=== PATIENT | female | born 1945 | race Caucasian/White ===

== ENCOUNTER 2016-10-09 15:56 | Inpatient (IN) ==
[2016-10-09 16:30] LABS: MANUAL DIFF NEEDED? NO
[2016-10-09] MEDS ORDERED: SODIUM CHLORIDE 0.9% INJ ONE (16:30)
[2016-10-09] MEDS ORDERED: PROTONIX IV ONE (16:30)
[2016-10-09] MEDS ORDERED: G.I. COCKTAIL PO ONE (16:30)
[2016-10-09 16:36] LABS: BASO% 0.2 % (0.0-0.8); EOS# 0.09 X1000 (0.0-0.7); HEMATOCRIT 44.3 % (37.0-47.0); HEMOGLOBIN 14.9 g/dL (12.0-16.0); LYMPH# 1.81 X1000 (1.2-3.4); MCHC 33.6 g/dL (33-37); MCV 86.4 FL (81-99); MONO% 9.3 % (1.7-9.3); MPV 10.7 FL (7.4-10.4); NEUT% 68.5 % (42.2-75.2); PLT 292 X1000 (130-400); RBC 5.13 XMIL (4.2-5.4)
[2016-10-09 16:46] LABS: INR 0.97; PROTIME 10.2 Seconds (9.2-11.7)
[2016-10-09 17:06] LABS: AGAP 15; ALBUMIN 4.4 g/dL (3.5-5.0); ALKALINE PHOSPHATASE 119 U/L (32-104); BUN 12 mg/dL (8-22); CALCIUM 9.7 mg/dL (8.8-10.2); CHLORIDE 100 mmol/L (98-107); CK PROFILE 69 U/L (24-173); COSMO 282; GOT 23 U/L (10-30); GPT 27 U/L (10-36); MAGNESIUM 2.1 mg/dL (1.5-2.7); POTASSIUM 4.3 mmol/L (3.5-5.1); SODIUM 141 mmol/L (136-145); TCO2 26 mmol/L (25-35); TOTAL BILIRUBIN 0.31 mg/dL (0.20-1.00); TOTAL PROTEIN 7.6 g/dL (6.3-8.3)
[2016-10-09] MEDS ORDERED: PROTONIX PO ONE (17:33)
--- NOTE | 2016-10-09 17:55 | Diag Imaging Result Doc PS360 ---
EXAM: ANGIOGRAM/PULMONARY ARTERIES HISTORY: central CP, elev D Dimer TECHNIQUE: CT of the chest with intravenous contrast with dose reduction (clarity.) COMMENT: There is a peripheral embolus in the posterior right lower lobe. There is no evidence of thoracic aortic aneurysm or dissection. There are granulomatous calcifications in the right lower lobe right hilum and aorticopulmonary window. No abnormal fluid collections are present. There is some patchy air trapping. There is atelectasis or fibrosis in the lingula. There are spondylotic changes in the thoracic spine. There is some thickening of the wall of the gallbladder with pericholecystic fluid. IMPRESSION: Minimal pulmonary embolus in the right lower lobe. Possibility of cholecystitis cannot be excluded. Electronically signed by Tesfaye Thompson 10/09/2016 5:53 PM
[2016-10-09] MEDS ORDERED: HEPARIN IV ONE (17:59)
--- NOTE | 2016-10-09 18:07 | PROVIDER DOCUMENTATION ---
This chart was entered by Christal Santos Scribe, acting as scribe for Ede Pacheco MD. HPI-Chest Pain - General Chief Complaint: Chest Pain Stated Complaint: ABN EKG Time Seen by Provider: 10/09/16 16:16 Source: patient Allergies/Adverse Reactions: Patient Allergies Allergy/AdvReac Type Severity Reaction Status Date / Time acetaminophen [From [facility]] Allergy tingling Verified 06/20/14 10:52 in hands and nausea hydrocodone bitartrate * Allergy tingling Verified 06/20/14 10:52 [From [facility]] in hands and nausea - History of Present Illness-CP Nature of Presenting Problem: Pt is 71 y/o F presents to the ED with chest pain. Pt states CP radiates to epigastric. Pt states pain started last night and she thought it was indigestion. Pt states took some tums for her indigestion. Pt states chest pain was present for 3 hours. Pt states pain changed to discomfort around 0600 this am. Pt states N and denies V. Pt denies F. Pt denies REID. Pt states tingling in fingers on shivam hands. Location: reports: other (L side) Chest Pain Radiation: reports: epigastric Quality of Pain: reports: pressure, tightness Severity in ED: moderate Onset/Duration: last night Timing: improving, intermittent Context/Activities at Onset: reports: light activity Modifying Factors: improves with: nothing Associated Symptoms: reports: abdominal pain, nausea. denies: back pain, dizziness, edema, fatigue, fever/chills, headache, heartburn, rash, shortness of breath, swelling/lump in chest, syncope, vomiting, weakness Nitro Today/Relief: no nitro taken today Aspirin Treatment Today: no aspirin today Prior Chest Pain/Cardiac Workup: reports: no prior chest pain, no prior cardiac workup Similar Symptoms Previously?: Yes Recently Seen Here or By Another Healthcare Provider: Yes (PCP at 1400 today ) Review of Systems - Adult - REVIEW OF SYSTEMS - ADULT Constitutional: denies: chills, fever Eyes: denies: blurred vision, double vision Ears, Nose, Mouth & Throat: denies: ear pain, nose pain, throat pain Cardiovascular: reports: chest pain. denies: heart murmur, irregular heart rate Respiratory: denies: cough, shortness of breath, wheezing Gastrointestinal: reports: abdominal pain, nausea. denies: diarrhea, vomiting Genitourinary: denies: dysuria, hematuria Musculoskeletal: denies: bone pain, joint pain, muscle aches, neck pain Integumentary: denies: hives, itching, rash Neurological: reports: other (tingling in fingers). denies: dizziness/vertigo, headache/migraines, numbness, syncope Psychiatric: reports: no symptoms reported Endocrine: reports: no symptoms reported Hematologic/Lymphatic: reports: no symptoms reported Allergic/Immunologic: reports: no symptoms reported All Other Systems: Reviewed and Negative Past History - Adult - PAST MEDICAL HISTORY-ADULT Review of Records: reports: Old Records Reviewed, Nursing Assessment Review, Medications Reviewed, Social history reviewed & non-contributory. Major Childhood Illnesses: reports: denies history Cardiovascular: reports: denies history Respiratory: reports: denies history Gastrointestinal: reports: denies history Obstetrical/Gynecological: reports: denies history Genitourinary: reports: denies history Musculoskeletal: reports: denies history Neurological: reports: denies history Endocrine/Immune: reports: denies history Other Conditions: reports: denies history - PRIOR SURGERIES/PROCEDURES Surgical/Procedure History: reports: reviewed, not pertinent - IMMUNIZATION STATUS Childhood Immunizations: See Nurse Assessment Flu Vaccine: See Nurse Assessment - FAMILY HISTORY Family History: reviewed, not pertinent - SOCIAL HISTORY Smoking: denies Substance Use: denies Living Situation: family Physical Exam-General - PHYSICAL EXAM-ADULT Initial Vital Signs Reviewed: Yes - CONSTITUTIONAL General Appearance: appears well, alert, no apparent distress - EYES Eyes: PERRL/EOMI, pink conjunctivae - HEAD, EARS, NOSE, MOUTH & THROAT HENMT: normal ENT inspection - NECK Neck: normal inspection - RESPIRATORY Respiratory: chest non-tender, lungs clear, normal breath sounds - CARDIOVASCULAR Cardiovascular: normal peripheral pulses, regular rate, rhythm - GASTROINTESTINAL (ABDOMEN) Abdominal Exam: normal bowel sounds, soft, tenderness (RUQ; epigastric; suprapubic) - MUSCULOSKELETAL Back Exam: normal inspection Extremity: normal range of motion, normal inspection - SKIN Integumentary: normal color, normal turgor, warm/dry - NEUROLOGIC Neurologic: grossly normal - PSYCHIATRIC Psych/Mental Status: normal mood/affect, oriented x 3 Progress - PLAN OF CARE/RESULTS Progress/Plan/Lab Results: Vital Signs - 8 hr 10/09/16 16:09 10/09/16 16:40 Temperature 98.0 F Pulse Rate 77 68 Respiratory Rate 20 16 Blood Pressure 133/60 142/65 O2 Sat by Pulse Oximetry 97 99 Laboratory Results - last 24 hr 10/09/16 10/09/16 10/09/16 16:17 16:17 16:17 WBC 8.60 RBC 5.13 Hgb 14.9 Hct 44.3 MCV 86.4 MCH 29.0 MCHC 33.6 RDW Std Deviation 13.2 Plt Count 292 MPV 10.7 H Immature Gran % (Auto) 0.0 Neut % (Auto) 68.5 Lymph % (Auto) 21.0 Mcpherson % (Auto) 9.3 Eos % (Auto) 1.0 Baso % (Auto) 0.2 Immature Gran # (Auto) 0.00 Neut # (Auto) 5.88 Lymph # (Auto) 1.81 Mcpherson # (Auto) 0.80 H Eos # (Auto) 0.09 Baso # (Auto) 0.02 PT INR PTT (Actin FS) D-Dimer 0.61 H Sodium 141 Potassium 4.3 Chloride 100 Carbon Dioxide 26 Anion Gap 15 BUN 12 Creatinine 0.6 Estimated GFR/1.73 m2 > 60 BUN/Creatinine Ratio 20 Glucose 110 H Calculated Osmolality 282 Calcium 9.7 Magnesium 2.1 Total Bilirubin 0.31 AST 23 ALT 27 Alkaline Phosphatase 119 H Creatine Kinase 69 Troponin T Thv-J-[id number] Pept Total Protein 7.6 Albumin 4.4 Globulin 3.2 Albumin/Globulin Ratio 1.4 10/09/16 10/09/16 10/09/16 16:17 16:17 16:17 WBC RBC Hgb Hct MCV MCH MCHC RDW Std Deviation Plt Count MPV Immature Gran % (Auto) Neut % (Auto) Lymph % (Auto) Mcpherson % (Auto) Eos % (Auto) Baso % (Auto) Immature Gran # (Auto) Neut # (Auto) Lymph # (Auto) Mcpherson # (Auto) Eos # (Auto) Baso # (Auto) PT 10.2 INR 0.97 PTT (Actin FS) 25.0 D-Dimer Sodium Potassium Chloride Carbon Dioxide Anion Gap BUN Creatinine Estimated GFR/1.73 m2 BUN/Creatinine Ratio Glucose Calculated Osmolality Calcium Magnesium Total Bilirubin AST ALT Alkaline Phosphatase Creatine Kinase Troponin T < 0.010 Odm-T-Bbgoxfcxtnu Pept 171 Total Protein Albumin Globulin Albumin/Globulin Ratio Orders Category Date Time Status ANGIOGRAM/PULMONARY ARTERIES [CT] Stat Exams 10/09/16 17:26 Completed CBC WITH ELECTRONIC DIFF [HEME] Stat Lab 10/09/16 16:17 Completed CK PROFILE [SP CHEM] Stat Lab 10/09/16 16:17 Completed COMPREHENSIVE METABOLIC PANEL [CHEM] Stat Lab 10/09/16 16:17 Completed D-DIMER [CHEM] Stat Lab 10/09/16 16:17 Completed MAGNESIUM [CHEM] Stat Lab 10/09/16 16:17 Completed PRO B-NATRIURETIC PEPTIDE Stat Lab 10/09/16 16:17 Completed PROTIME WITH INR [COAG] Stat Lab 10/09/16 16:17 Completed PTT [COAG] Stat Lab 10/09/16 16:17 Completed TROPONIN T Stat Lab 10/09/16 16:17 Completed Heparin Med 10/09/16 17:59 Once 1,440 unit IV NOW ONE Lido/Quinn Alk/Al&mg Hydrox [G.i. Cocktail] Med 10/09/16 16:30 Discontinued 30 ml PO NOW ONE Pantoprazole [Protonix] Med 10/09/16 16:30 Discontinued 40 mg IV NOW ONE Pantoprazole [Protonix] Med 10/09/16 17:33 Discontinued 40 mg PO NOW ONE Sodium Chloride 0.9% Med 10/09/16 16:30 Discontinued 10 ml INJ NOW ONE EKG [EKG] Stat Ther 10/09/16 16:13 Ordered Result Diagrams: 10/09/16 16:17 10/09/16 16:17 - CT/MRI 1 CT Study: Angiogram Impression: Abnormal (possiblity of cholecystitis cannot be excluded) CT Results: minimal pulmonary embolus in the right lower lobe. - CONSULTS/PCP/HOSPITALIST Notification #1 *Consult/PCP/Hospitalist*: [place] Time Discussed: 18:03 Consult Disposition: Will see in ED, Admit Departure - Departure Date of Disposition Decision: 10/09/16 Time of Disposition Decision: 18:00 DIAGNOSIS: Pulmonary embolus, right Disposition: ADMITTED INPATIENT 09 Certified Medical Emergency: Emergent Condition: Good Referrals and Follow-Ups: Donny Morris [Primary Care Provider] - - Critical Care Note This patient required my direct & personal management of CC.: No This chart was documented by the indicated scribe, (Christal Santos Scribe) and accurately reflects the services I performed and decisions made by me, Ede Pacheco MD, as attested by the provider's signature.
[2016-10-09] MEDS ORDERED: LOVENOX SUBQ SCH (18:45)
[2016-10-09] MEDS: LOVENOX SUBQ SCH (19:21)
--- NOTE | 2016-10-09 19:33 | HISTORY AND PHYSICAL ---
PRIMARY CARE PHYSICIAN: Donny Mroris MD. PRESENTING COMPLAINT: Epigastric discomfort and abdominal puffiness. HISTORY OF PRESENTING COMPLAINT: Ms. Barrett is a 71-year-old, female, previously healthy until about 2 days ago when she started having this epigastric discomfort associated with abdominal bloatedness and belching. There was a one time episode of being nauseated but no vomiting. The patient also referred that she had some pressure in the epigastrium radiating to the back. The left finger got somehow numb but that is not new. Patient went to her PCP. They did an EKG and, according to her, saw something abnormal so they recommended that she come to the emergency department. Patient came and was evaluated. Initial workup showed that her D-dimer was slightly elevated so a CTA was done which revealed a minimal pulmonary embolus in the right lower lobe but the possibility of cholecystitis could not be excluded. We were therefore consulted for admission for medical care. PAST MEDICAL HISTORY: Unremarkable. PAST SURGICAL HISTORY: Previous hysterectomy. Repair of cystostomy. Removal of bladder tumor for which pathology was benign. SOCIAL HISTORY: Patient is and lives with her . Her kids are grown. Denies any alcohol or tobacco use. Patient is retired. She is, however, very active at home. Moving up and down. HEALTH MAINTENANCE: Patient also refers that she normally does at her mammogram routinely and there has not been any abnormality. She also does a Pap smear routinely but there has not been any abnormality. She also had a colonoscopy about 10 years ago but there was no abnormality. ALLERGIES: Acetaminophen and hydrocodone. REVIEW OF SYSTEMS: A 14 point review of systems was conducted with the patient and unremarkable except for what we have in the HPI. Specifically, patient denies losing weight or night sweats. She denies any chest pain or shortness of breath. She is not coughing. She is not having any sputum production. Patient denies any diarrhea or [place] bleed. PHYSICAL EXAMINATION: VITAL SIGNS: Blood pressure 142/65, pulse 68, respirations 16, temperature is 98.0 degrees. Patient is saturating 99% on room air. GENERAL EXAMINATION: Ms. Chung is a 71-year-old, female. She is in bed. She is not in any distress. HEENT: Mucosa is pink and moist. Anicteric. Acyanotic. Head is normocephalic and atraumatic. NECK: Supple. There is no JVD and no carotid bruit. CHEST: Good air entry bilateral. There is no accessory muscle use. Normal percussion noted bilateral. I did not appreciate any crepitations or any rhonchi. CARDIOVASCULAR: Regular rate and rhythm. No murmurs, no rubs, no gallops. ABDOMEN: Soft. There is mild tenderness in the epigastrium. Bowel sounds are present. There is no hepatosplenomegaly and no organomegaly felt. EXTREMITIES: No pedal edema. Distal pulses are present. CENTRAL NERVOUS SYSTEM: Patient is alert, awake, oriented x4. Executive functions are intact. Cranial nerves 2-12 have grossly been examined and are unremarkable. Sensation is intact bilaterally. Reflexes are intact and motor is 5/5 in all extremities. Cerebellar functions are also intact. PSYCHIATRIC: Patient has very good judgment and insight. She has normal interactions. LABORATORY DATA: 1. WBC is 8.60, hemoglobin is 14.9, platelet count of 292,000. Chemistry is reviewed and is completely normal. Troponin 0.010. 2. EKG shows normal sinus rhythm. I did not see any ST-segment abnormalities or any T-wave abnormalities. 3. CTA shows minimum pulmonary embolus in the right lower lobe, possibility of cholecystitis cannot be excluded. ASSESSMENT: Ms. Barrett is a 71-year-old, female with an apparently previous healthy status who presented to the emergency department because of epigastric discomfort. She has been found to have a small pulmonary emboli in the right lower lobe. 1. Epigastric discomfort/bloating: CTA shows possibility of cholecystitis. I think this is the main reason why the patient came to the emergency room. We are going to do a limited ultrasound of the right upper quadrant to see the gallbladder well. If it is abnormal, we will involve our Surgery colleagues. 2. Small pulmonary embolism: I think this is probably a an incidental pathology that has been found. We would have to treat it as it is. We will put her on a therapeutic dose of Lovenox for now. In case patient will need surgery we can withhold this and use heparin. An ultrasound of the lower extremities has also been ordered and echocardiogram has also been ordered for tomorrow. The patient does not seem to have any remarkable risk factors to have developed a pulmonary embolism. She is very active. She does not smoke. She seems to have had all of her screening tests done but her colonoscopy has been a while. We will do a CT scan of the abdomen and pelvis at a later date to make sure there is no hidden disease that needs to be taken care of. We will also order a thrombophilic workup and involve our Hem /Onc colleagues. 3. We are going to put the patient on gentle IV hydration to dilute some of the contrast that she got and also for adequate hydration. I will put her on PPI b.i.d., therapeutic Lovenox. I will Consult Surgery and also our Hem/Onc colleagues. cc: Krishna Bullock MD MTDD
[2016-10-09] MEDS ORDERED: NS 1,000 ML IV SCH (19:34)
[2016-10-09] MEDS: PRILOSEC PO SCH (22:02)
[2016-10-10 03:37] LABS: HEMATOCRIT 39.7 % (37.0-47.0); HEMOGLOBIN 13.4 g/dL (12.0-16.0); MCH 29.5 PG (27-31); MCHC 33.8 g/dL (33-37); MCV 87.4 FL (81-99); MPV 10.4 FL (7.4-10.4); RBC 4.54 XMIL (4.2-5.4)
[2016-10-10 04:11] LABS: AGAP 10; BUN 12 mg/dL (8-22); CALCIUM 8.8 mg/dL (8.8-10.2); CHLORIDE 105 mmol/L (98-107); COSMO 283; POTASSIUM 3.8 mmol/L (3.5-5.1); SODIUM 142 mmol/L (136-145); TCO2 27 mmol/L (25-35)
[2016-10-10] MEDS: LOVENOX SUBQ SCH (06:07)
--- NOTE | 2016-10-10 09:14 | Diag Imaging Result Doc PS360 ---
EXAM: US GB < RUQ (LIMITED) HISTORY: gallbladder eval TECHNIQUE: Transabdominal COMMENT: The pancreas is unremarkable. The aorta and inferior vena cava are within normal limits. The liver is slightly hyperechoic. There is no evidence of biliary dilatation. The common bile duct measures 4 mm. There is antegrade flow in the portal vein. The gallbladder is filled with stones. There is no evidence of para cholecystic fluid and there is no sonographic Harrison sign. The right kidney is without evidence of hydronephrosis or mass. IMPRESSION: Cholelithiasis. Hepatic steatosis. Electronically signed by Tesfaye Thompson 10/10/2016 9:12 AM
[2016-10-10] MEDS: PRILOSEC PO SCH (10:39)
[2016-10-10 12:12] VITALS: BP 123/76
--- NOTE | 2016-10-10 13:45 | ECHO REPORT ---
ORDER DATE: 10/10/2016 ECHOCARDIOGRAPHIC MEASUREMENTS: 1. Interventricular septum 1.1. Left ventricular posterior wall 1.0. Diastolic diameter 3.5. Left atrium 3.7. Aorta 2.6. Aortic valve leaflets were trileaflet. Mitral valve was normal. Tricuspid valve was normal. Pulmonic valve was normal. 2. Normal left ventricular cavity size. Estimated ejection fraction of 65%. Technically suboptimal study. Poor apical windows. 3. There is no aortic stenosis or regurgitation. There is trace mitral regurgitation. Trace tricuspid regurgitation. Peak velocity across the tricuspid valve was 2.2 m/sec. 4. There is no pericardial effusion. 5. There is no obvious intracardiac mass or thrombus seen. cc: MD Hamzah Potts CRNP
--- NOTE | 2016-10-10 15:47 | CONSULTATION ---
DATE OF CONSULTATION: 10/10/2016 REQUESTING PHYSICIAN: Dr. Bullock. REASON FOR CONSULTATION: PTE. HISTORY OF PRESENT ILLNESS: Ms. Barrett is a pleasant 71-year-old, female, who presented to the [facility] complaining of some indigestion. The patient reports that she actually was at her primary care physician's office prior to presentation, and had an EKG that was done which showed "something not right." The patient then presented to the emergency department. She reported to them that she was having some epigastric discomfort, as well as pressure that was radiating to her back. She also had a left finger that is numb, but she reports that this is not new. During her workup, the patient had a D-dimer which was slightly elevated. She then subsequently had a CTA which revealed her to have a minimal pulmonary embolism in the right lower lobe. This CTA also happened to find that she possibly had cholecystitis. She has now been admitted. PAST MEDICAL HISTORY: No past medical history reported. PAST SURGICAL HISTORY: 1. Status post hysterectomy. 2. Status post cystotomy for the removal of a bladder tumor which was found to be benign. SOCIAL HISTORY: Patient is and lives with her . Her is at bedside. She has grown children. She denies any alcohol or tobacco use. Patient is very active, even though she is retired. FAMILY HISTORY: No family history of blood clots reported. REVIEW OF SYSTEMS: A 14 point review of systems has been completed and is negative, except for what is in the HPI. PHYSICAL EXAMINATION: Vital Signs: Temperature 98.8 degrees, heart rate 59, respirations 18, blood pressure 117/53, O2 saturation 96% on room air. General: female lying in hospital bed, who is in no acute distress. at bedside. HEENT: Head normocephalic atraumatic. Eyes: Pupils equal, round, reactive. Ears, nose, throat, neck, and mouth: Oral mucosa is normal. Trachea is midline. Gross auditory acuity is intact. Cardiovascular: S1, S2 heard without any murmurs, gallops, rubs appreciated. Respiratory: Chest is clear to auscultation bilaterally with normal respiratory effort. Gastrointestinal: Abdomen is soft, nontender, nondistended. Positive bowel sounds. Musculoskeletal: No bony abnormalities. Extremities: No edema, cyanosis or clubbing noted. Neurologic: Patient alert and oriented x3. There are no focal motor deficits. LABS AND STUDIES: White blood cells 5.24, hemoglobin 13.4, hematocrit 39.7, platelets 246. Sodium 142, potassium 3.8, chloride 105, CO2 27, BUN 12, creatinine 0.6, glucose 108. Cardiac enzymes have been negative. D-dimer was elevated at 0.61. CT angio as per the HPI. ASSESSMENT AND PLAN: 1. Acute pulmonary thromboembolism. Patient is currently on weight-based Lovenox. Encouraged to continue that at this time. Hypercoagulable workup has also been sent. Will follow up on those results. Recommend that the patient be transitioned to oral anticoagulant if no surgical procedures are going to be planned. Patient's has previously been on Xarelto. Reviewed dosing of Xarelto with the patient again. She seems to feel rather comfortable with Xarelto. Would recommend Xarelto 15 mg twice daily times 21 days, and then transition to 20 mg daily thereafter. Patient can be set up in our office for followup upon discharge. 2. Cholecystitis on computed tomography angiography. Abdominal ultrasound has been ordered. Patient denies any symptoms at this time. 3. Abnormal electrocardiogram per patient's report. So far, cardiac enzymes have been negative. I want to thank you for consulting us on Ms. Barrett. We will continue to follow along and adjust our treatment plan per hospital course. Dictated by EUNICE Davis for Casie Walters MD cc: Casie Walters MD
[2016-10-10] MEDS ORDERED: XARELTO PO SCH ×2 (17:00→21:00)
--- NOTE | 2016-10-11 05:22 | DISCHARGE SUMMARY ---
ADMISSION DATE: 10/09/2016 DISCHARGE DATE: 10/10/2016 CONSULTATION DURING THIS ADMISSION: None. INVASIVE PROCEDURES DONE DURING THIS ADMISSION: None. IMAGING STUDIES OF SIGNIFICANCE: 1. A CTA of the lungs was done which showed minimal pulmonary embolus in the right lower lobe. 2. An abdomen ultrasound was done which showed cholelithiasis, hepatic steatosis. No evidence of pericholecystic fluid and there is no sonographic Harrison's sign. 3. An echocardiogram shows an ejection fraction of 65% with normal left ventricular wall measurements. ADMISSION DIAGNOSES: 1. Epigastric discomfort. 2. Small pulmonary embolism. 3. Mild dehydration. DISCHARGE DIAGNOSES: 1. Epigastric discomfort secondary to cholelithiasis. 2. Small pulmonary emboli. 3. Dehydration, improved. DISCHARGE MEDICATIONS: 1. Rivaroxaban 15 mg b.i.d. for 21 days, then start 20 mg afterwards. 2. Omeprazole 40 mg daily. FOLLOWUP: 1. Dr. Walters. 2. Dr. Morris. PRESENTING COMPLAINT: Abdominal discomfort. HISTORY OF PRESENTING COMPLAINT: Ms. Barrett is a 71-year-old, very pleasant, female who came to the emergency department because of epigastric discomfort associated with some bloating. The patient was evaluated. During the workup, a CTA was done because of elevated D-dimer. Patient was found to have very small, right posterior artery thrombosis. Was admitted for management. HOSPITAL COURSE: Patient did pretty well. Started on some PPI and therapeutic Lovenox. Ultrasound was done which confirmed cholelithiasis without cholecystitis. Today , Ms. Barrett refers to be doing fine, completely asymptomatic. No more epigastric pain. She does not feel any more bloating or belching. No nausea or vomiting. Has regular bowel movement. She is tolerating her feeding. We are therefore going to discharge her. We are going to discharge her on rivaroxaban as outlined above, for patient to follow up with Dr. Walters to review all of her thrombophilic workup and also any other workup that needs to be done to rule out any thrombophilic tendencies. She is also supposed to follow up with Dr. Morris on the cholelithiasis. At the time of discharge, Ms. Barrett is completely asymptomatic. Her vitals are stable with a blood pressure of 123/76, pulse is 64, respirations are 18, temperature is 98 degrees. DISPOSITION: Home. ACTIVITY: As tolerated. DIET: Low fat diet. Time spent for discharge is 34 minutes. cc: Krishna Bullock MD MTDD
--- NOTE | 2016-10-12 06:14 | EKG Report ---
Test Performed on : 10/09/2016 4:06:19 PM Test Reason : Re-Ordered/CP Blood Pressure : / mmHG Vent. Rate : 066 BPM Atrial Rate : 066 BPM P-R Int : 170 ms QRS Dur : 070 ms QT Int : 416 ms P-R-T Axes : 075 078 019 degrees QTc Int : 436 ms Normal sinus rhythm. with sinus arrhythmia. Nonspecific ST and T wave abnormality Abnormal ECG No previous ECGs available Unconfirmed Result
[2016-11-01] MEDS ORDERED: XARELTO PO SCH (17:00)
== END 2016-10-10 15:56 | disposition home or self-care (01) ==
LOC: ED 15:56 → 3N 19:13
PROVIDERS: ATTEND Internal Medicine